=== PATIENT | female | born 1980 | race African-American/Black ===

== ENCOUNTER 2017-07-27 07:39 | Emergency (ER) | payer OTHER ==
[~2017-07-27] VITALS: Ht 165.1 cm; Wt 82.7 kg
[2017-07-27 07:45] VITALS: TEMP 36.6; Ht 165.1 cm; Wt 82.7 kg
--- NOTE | 2017-07-27 09:06 | DIAGNOSTIC IMAGING REPORT ---
R KNEE 3 VIEWS CLINICAL HISTORY: Right knee pain. No recent trauma. COMPARISON: None FINDINGS: Alignment of the right knee is anatomic. No fracture or osseous lesion is present. There is no definite right knee joint effusion. Joint spaces are preserved. IMPRESSION: No significant abnormality of the right knee. Electronically signed by: Didier Mar M.D. 07/27/2017 9:05 AM Dictated Date/Time: 07/27/2017 9:04 AM
--- NOTE | 2017-07-27 09:21 | EMERGENCY ROOM VISIT NOTE ---
ED Visit Note First contact with patient: 07:59 CHIEF COMPLAINT: Right knee pain 2 days HISTORY OF PRESENT ILLNESS: Patient is a 36-year-old female who presents emergency department for evaluation of right knee pain. Her symptoms started fairly abruptly Friday. She got up and had breakfast, then went back to bed. When she got up from her nap, she felt a sharp pain in the medial aspect of the right knee and states that the leg buckled on her. She continues to note medial right knee pain that is worse with movement and weightbearing. She has not tried taking any medication for her symptoms, but applied ice, heat and icy hot. She does stand a lot at work, but she denies any injury to the knee prior to the onset her pain. No prior history of knee problems. REVIEW OF SYSTEMS: Review of systems as per HPI. All other systems reviewed were negative. At least 6 systems reviewed. PMH: Electronic medical records are reviewed and summarized as above/below. See Problem List. SOCIAL HISTORY: Patient lives at home. Smoker. PHYSICAL EXAM: Vital Signs: Reviewed Nurse's notes. MENTAL STATUS: Well- appearing 36-year-old female who was laying on the gurney in no acute distress. MUSCULOSKELETAL: Examination of the right lower extremity does not reveal any obvious deformity. There is some minor soft tissue swelling over the right knee , no significant joint effusion is palpable. There is no peripatellar tenderness, although there is some crepitus with patellar grind. She has marked tenderness along the medial joint line. No popliteal tenderness or fullness. She can extend fully, resists flexion to about 90. No gross ligamentous instability appreciated. Exam is difficult due to patient guarding. She is able to stand at the bedside in place some minimal weight on the right leg and ambulates with an antalgic gait. The right hip and the right knee are benign. The right lower extremity is neurovascularly intact. EMERGENCY DEPARTMENT COURSE: X-rays of the right knee were obtained and were unremarkable. Supportive care measures were discussed. Possibility of a bursitis, tendinitis, meniscal or ligamentous injury were discussed. Patient was wrapped with an Cliff wrap and issued crutches. She declined a knee immobilizer and was encouraged to use a brace that she can obtained from a local pharmacy. She was strongly encouraged to ice and take an anti- inflammatory medicine. She was advised to follow-up with her primary care provider or with orthopedics if her symptoms are not improving. Medication reconciliation: I attest that I have personally reviewed the patient' s current medication list. Blood pressure screening : Patient was found to have normal blood pressure on screening and does not require follow-up. R KNEE 3 VIEWS CLINICAL HISTORY: Right knee pain. No recent trauma. COMPARISON: None FINDINGS: Alignment of the right knee is anatomic. No fracture or osseous lesion is present. There is no definite right knee joint effusion. Joint spaces are preserved. IMPRESSION: No significant abnormality of the right knee. Problem List Medical Problems: (1) Asthma Status: Resolved (2) Hypertension Status: Resolved Current/Historical Medications No Active Prescriptions or Reported Meds Allergies Coded Allergies: No Known Allergies (Unverified , 07/27/17) Vital Signs Date Time Temp Pulse Resp B/P (MAP) Pulse Ox O2 Delivery O2 Flow Rate FiO2 07/27/17 09:45 88 20 123/77 98 07/27/17 07:45 36.6 99 20 126/81 97 Room Air Departure Information Impression Primary Impression: Right knee pain Prescriptions No Active Prescriptions or Reported Meds Referrals No Doctor, Assigned (PCP) Tito Mireles, DO Patient Instructions [facility] Additional Instructions Ibuprofen(Motrin, Advil): may be used for fever or pain. Use 600mg every six hours as needed. Take with food. Avoid using more than 2400mg in a 24 hour period. Do not use 2400mg per day for more than three consecutive days without physician direction. Prolonged inappropriate use can lead to stomach upset or ulcers. This is available over the counter and typically comes in 200mg tablets. (AND/OR) Acetaminophen(Tylenol): may be used for fever or pain. Use 1000mg every eight hours as needed. Avoid using more than 3000mg in a 24 hour period. This is available over the counter. Ice compresses for 20 minutes at a time four times daily for 2-3 days. Use the crutches as instructed. You may use an [id number] knee brace for support. Rest and elevate your injury as discussed. Continue current medications. Return to the ER immediately for any numbness, tingling, severe pain, extreme swelling in the extremity or as needed. Follow up with your family physician or orthopedic surgery for further care and evaluation if your symptoms are not improving. Problem Qualifiers Primary Impression: Right knee pain Chronicity: acute Qualified Codes: M25.561 - Pain in right knee
[2017-07-27 09:45] VITALS: BP 123/77; PULSE 88; O2SAT 98
== END 2017-07-27 09:52 | disposition home or self-care (01) ==
LOC: C.EDB 07:44 → C.EDA 09:52
DX: M25.561 Pain in right knee (principal); J45.909 Unspecified asthma, uncomplicated; I10 Essential (primary) hypertension; Z72.0 Tobacco use